=== PATIENT | male | born 1980 | race Two or more races ===

== ENCOUNTER 2020-06-25 18:50 | Emergency (ER) | payer BC, OTHER ==
[~2020-06-25] VITALS: Ht 177.8 cm; Wt 117.9 kg
[2020-06-25 23:54] VITALS: BP 114/74
== END 2020-06-26 00:43 | disposition home or self-care (01) ==
LOC: ER 18:50 → EDBD 18:50 → ER 06-26 00:43
DX: H10.31 Unspecified acute conjunctivitis, right eye (principal); E11.9 Type 2 diabetes mellitus without complications